=== PATIENT | male | born 1990 | race Caucasian/White ===

== ENCOUNTER 2020-01-02 10:07 | Day surgery (SDC) | payer BC, OTHER ==
[2020-01-02] MEDS ORDERED: Sodium Chloride 0.9% 10 ML Syringe FLUSH PRN (10:15)
[2020-01-02] MEDS ORDERED: Lactated Ringers 1,000 ML IV SCH (10:15)
[2020-01-02] MEDS ORDERED: Propofol 200 MG/20 ML SDV ONE ×2 (10:56→11:38)
[2020-01-02] MEDS ORDERED: Midazolam 1 MG/ML 2 ML SDV ONE ×2 (10:56→11:38)
--- NOTE | 2020-01-02 11:37 | PCM.HPR ---
H & P Addendum review - H & P Addendum Review Date of Original H & P: 12/19/19 Date Reviewed: 01/02/20 Time Reviewed: 11:37 Patient was Examined: No Changes
--- NOTE | 2020-01-02 12:08 | PCM.OPNOTE ---
- General Post-Op/Procedure Note Date of Surgery/Procedure: 01/02/20 Operative Procedure(s): Colonoscopy with bx Findings: Normal Pre Op Diagnosis: Chronic Diarrhea; hematochezia Post-Op Diagnosis: Same Anesthesia Technique: TRE Primary Surgeon: Abraham West Anesthesia Provider: Tamica Huitron Complications: None Condition: Good
--- NOTE | 2020-01-07 07:02 | OR ---
Date of Procedure: 01/02/2020 PREOPERATIVE DIAGNOSES: 1. Change in bowel habits with chronic diarrhea. 2. Hematochezia. POSTOPERATIVE DIAGNOSIS: Normal colonoscopy. PROCEDURE: Colonoscopy with biopsies. ANESTHESIA: IV sedation. PROCEDURE IN DETAIL: The patient was brought to the procedure room where he was placed on his left side and IV sedation administered. Digital rectal exam was performed, which was normal. Colonoscope was inserted and advanced to the level of the cecum without difficulty. Cecal position was confirmed by identifying the appendiceal lumen and ileocecal valve. Prep was good and surfaces were well visualized. Upon withdrawing the scope, all segments of the colon and rectum were normal. There was no evidence of colitis, diverticulitis, or other abnormalities. Retroflexion revealed normal-appearing hemorrhoids. I did take random biopsies throughout all segments of the colon and rectum to check for microscopic colitis. Air was removed and the scope withdrawn. Patient tolerated the procedure well, returned to recovery in stable condition. The patient will follow up with Elvia Butts next week for review of pathology report. LUISA RIDLEY MD /[id number]
== END 2020-01-02 13:11 | disposition home or self-care (01) ==
LOC: LL.SDS 10:07
PROVIDERS: ATTEND Surgery
DX: K52.9 Noninfective gastroenteritis and colitis, unspecified (principal); K64.9 Unspecified hemorrhoids; K92.1 Melena; Z01.812 Encounter for preprocedural laboratory examination; Z20.828 Contact with and (suspected) exposure to other viral communicable diseases; R19.4 Change in bowel habit; E66.9 Obesity, unspecified; F17.210 Nicotine dependence, cigarettes, uncomplicated; F41.9 Anxiety disorder, unspecified; Z79.899 Other long term (current) drug therapy; Z68.35 Body mass index [BMI] 35.0-35.9, adult
CPT/HCPCS: 00811; 45380; 87635; J2250; J2704; J7120; U0002

== ENCOUNTER 2020-07-26 15:52 | Emergency (ER) | payer OTHER ==
[2020-07-26] MEDS ORDERED: Tetracaine HCl/PF 0.5% 4 ML Bottle EYERT ONE (15:56)
[2020-07-26] MEDS ORDERED: Polymyxin B/Trimethoprim 10 ML Bottle EYERT ONE (16:13)
--- NOTE | 2020-07-27 00:11 | EDM.PDOC ---
ED HPI GENERAL MEDICAL PROBLEM - General Chief Complaint: Eye Problems Stated Complaint: eye pain Time Seen by Provider: 07/26/20 16:00 Source of Information: Reports: Patient, Family History Limitations: Reports: No Limitations - History of Present Illness INITIAL COMMENTS - FREE TEXT/NARRATIVE: Pt. presents to ER with complaints of redness and irritation to R eye. Pt. states that he wears hard contacts and slept with them in last night which he thinks caused irritation. Pt. denies any acute vision loss or change. Pt. has a history of corneal transplant. He states that he has not been doing any grinding or high energy machinery use that could have caused an injury. Pt. denies any purulent discharge. Primary complaint is that of photophobia, erythema, and watering. Onset: Today - Related Data Allergies Allergy/AdvReac Type Severity Reaction Status Date / Time No Known Allergies Allergy Verified 07/26/20 16:55 Home Meds: Home Meds Fluticasone Propionate [Flonase] 1 spray NASBOTH BID PRN 01/02/20 [History] Polyvinyl Alcohol/Povidone [Artificial Tears Drops] 1 drop EYEBOTH BID PRN 01/02/20 [History] cycloSPORINE [Restasis Multidose] 1 drop EYEBOTH BID 01/02/20 [History] Past Medical History HEENT History: Reports: Other (See Below) Other HEENT History: corneal abnormaility, keratoconus of both eyes Gastrointestinal History: Reports: GERD Psychiatric History: Reports: Anxiety Endocrine/Metabolic History: Reports: Obesity/BMI 30+ - Past Surgical History HEENT Surgical History: Reports: Other (See Below) Other HEENT Surgeries/Procedures: corneal transplant Social & Family History - Tobacco Use Tobacco Use Status *Q: Current Status Unknown - Caffeine Use Caffeine Use: Reports: Energy Drinks ED ROS GENERAL - Review of Systems Review Of Systems: See Below HEENT: Reports: Contact Lenses, Eye Discharge, Eye Pain. Denies: Vertigo, Vision Change ED EXAM GENERAL W FULL EYE - Physical Exam Exam: See Below Exam Limited By: No Limitations General Appearance: Alert, WD/WN, No Apparent Distress Eye Exam: Right Eye: Other (No globe injury. Conjuctiva is quite injected. No hyphema. EOMI. Pt. is very photophobic. No entrapment. Florescein exam reveals significant hyperemia and what appears to be a corneal abrasion to the lower portion of the eye. No obvious retained material on surface of eye/under eye lid. ), Bilateral Eye: EOMI, Normal Fundi, PERRL Course - Vital Signs Last Recorded V/S: Last Vital Signs Temp 36.8 C 07/26/20 16:00 Pulse 61 07/26/20 16:00 Resp 16 07/26/20 16:00 BP 138/83 07/26/20 16:00 Pulse Ox 100 07/26/20 16:00 - Orders/Labs/Meds Meds: Medications Discontinued Medications Generic Name Dose Route Start Last Admin Trade Name Birttnee PRN Reason Stop Dose Admin Polymyxin/Trimethoprim Sulfate 1 ml 07/26/20 16:13 07/26/20 16:22 Polymyxin B/Trimethoprim 10 Ml Bottle EYERT 07/26/20 16:14 1 ml ONETIME ONE Administration Tetracaine HCl 1 ml 07/26/20 15:56 07/26/20 16:20 Tetracaine Hcl/Pf 0.5% 4 Ml Bottle EYERT 07/26/20 15:57 1 ml ASDIRECTED ONE Administration Departure - Departure Time of Disposition: 17:00 Disposition: Home, Self-Care 01 Clinical Impression: Corneal abrasion, Conjunctivitis - Discharge Information Instructions: Polymyxin B; Trimethoprim eye drops, solution, Tramadol tablets Referrals: PCP,Unknown [Primary Care Provider] - Forms: ED Department Discharge Additional Instructions: Polytrim drops 1 drop to R eye 5 times daily for 7 days Tramadol 50mg 1 every 4-6 hours as needed for pain Follow-up with dragline operator helper tomorrow for slit lamp exam and check of IOP Return to ER if you have any acute vision loss or change Sepsis Event Note (ED) - Evaluation Sepsis Screening Result: No Definite Risk - Focused Exam Vital Signs: Vital Signs Temp Pulse Resp BP Pulse Ox 07/26/20 16:00 36.8 C 61 16 138/83 100 - Problem List Review Problem List Initiated/Reviewed/Updated: Yes - Assessment/Plan Plan: Polytrim drops 1 drop to R eye 5 times daily for 7 days Tramadol 50mg 1 every 4-6 hours as needed for pain Follow-up with dragline operator helper tomorrow for slit lamp exam and check of IOP, as there is no Tonopen available at this facility. Return to ER if you have any acute vision loss or change
== END 2020-07-26 16:28 | disposition home or self-care (01) ==
LOC: LL.ED 15:52
DX: S05.01XA Injury of conjunctiva and corneal abrasion without foreign body, right eye, initial encounter (principal); H10.9 Unspecified conjunctivitis; E66.9 Obesity, unspecified; Z68.30 Body mass index [BMI] 30.0-30.9, adult; W22.8XXA Striking against or struck by other objects, initial encounter
CPT/HCPCS: 99283; A9270-GY

== ENCOUNTER 2020-08-14 08:00 | Emergency (ER) | payer OTHER ==
[2020-08-14 08:59] LABS: CHLORIDE,CL 110 mmol/L (98-107); SODIUM,NA 146 mmol/L (136-145)
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
[2020-08-14 11:26] LABS: BARBITURATE SCREEN,URINE NEGATIVE (NEGATIVE); BENZODIAZEPINES SCREEN,URINE NEGATIVE (NEGATIVE); EDDP,URINE SCREEN NEGATIVE (NEGATIVE); TCA SCREEN,URINE NEGATIVE (NEGATIVE); THC SCREEN,URINE 50 NG/ML NEGATIVE (NEGATIVE)
== END 2020-08-14 11:00 | disposition home or self-care (01) ==
LOC: LL.ED 08:00
DX: S00.83XA Contusion of other part of head, initial encounter (principal); S80.02XA Contusion of left knee, initial encounter; E66.9 Obesity, unspecified; Z68.30 Body mass index [BMI] 30.0-30.9, adult; V49.40XA Driver injured in collision with unspecified motor vehicles in traffic accident, initial encounter
CPT/HCPCS: 36415; 71045; 72050; 73090-LT; 73110-LT; 73590-LT; 80048; 80305-QW; 80307; 81001; 83735; 85025; 99283; 99284